=== PATIENT | female | born 1950 | race Caucasian/White ===

== ENCOUNTER 2024-10-14 04:34 | Inpatient (IN) | payer MEDICARE, OTHER ==
[2024-10-14] VITALS (10 sets, daily range): BP systolic 70–129; BP diastolic 60–75
[~2024-10-14] VITALS: Ht 162.6 cm; Wt 55.7 kg
[2024-10-14 05:16] LABS: BASOPHILS ABSOLUTE AUTO 0.01 K/mm3 (0.00-0.23); BASOPHILS PERCENT AUTO 0 % (0-2); EOSINOPHILS ABSOLUTE AUTO 0.01 K/mm3 (0.00-0.68); EOSINOPHILS PERCENT AUTO 0 % (0-6); Hematocrit 45.7 % (33.0-51.0); Hemoglobin 14.1 g/dL (11.5-16.0); IMMATURE GRAN ABSOLUTE AUTO 0.02 K/mm3 (0.00-0.10); IMMATURE GRAN PERCENT AUTO 0 % (0-1); LYMPHOCYTES ABSOLUTE AUTO 1.04 K/mm3 (0.84-5.20); LYMPHOCYTES PERCENT AUTO 10 % (21-46); MONOCYTES ABSOLUTE AUTO 0.68 K/mm3 (0.16-1.47); MONOCYTES PERCENT AUTO 7 % (4-13); Mean Corpuscular HGB Conc 30.9 g/dL (31.5-36.5); Mean Corpuscular Volume 100 fL (80-100); NEUTROPHILS ABSOLUTE AUTO 8.62 K/mm3 (1.96-9.15); NEUTROPHILS PERCENT AUTO 83 % (41-73); NRBC ABSOLUTE 0.00 K/mm3 (0.00-0.02); NRBC Auto 0.0 /100 WBC (0.0-0.2); Platelet Count 204 K/mm3 (150-400); RDW Coefficient Variation 13.0 % (11.7-14.2); RDW Standard Deviation 48.0 fL (35.1-46.3)
[2024-10-14 05:28] LABS: Alanine Aminotransfer (ALT/SGP 165.0 U/L (12-78); Albumin, Blood 3.1 g/dL (3.4-5.0); Albumin/Globulin Ratio 0.9 (0.8-1.8); Anion Gap 16.0 mmol/L (3-11); Aspartate Aminotrans (AST/SGOT 245.0 U/L (12-37); Bilirubin, Total 0.7 mg/dL (0.1-1.0); Blood Urea Nitrogen 32.0 mg/dL (8-24); CO2, Blood 18.0 mmol/L (21-32); Calcium, Blood 8.7 mg/dL (8.5-10.1); Chloride, Blood 106.0 mmol/L (98-108); Creatinine, Blood 0.78 mg/dL (0.40-1.00); Globulin, Blood 3.4 g/dL (2.2-4.0); Glucose, Blood 334.0 mg/dL (70-99); Potassium, Blood 3.7 mmol/L (3.5-5.5); Sodium, Blood 136.0 mmol/L (136-145); Total Protein, Blood 6.5 g/dL (6.4-8.2)
[2024-10-14 07:30] LABS: Source, Urine Clean Catch; pH Blood Venous 7.31 (7.34-7.37)
[2024-10-14 07:47] LABS: Bilirubin, Urine Neg (Neg); Glucose Qualitative, Urine 3+ (Neg); Ketones, Urine Neg (Neg); Leukocyte Esterase, Urine Neg (Neg); Protein, Urine 3+ (Neg); Specific Gravity, Urine 1.020 (1.003-1.022); Urobilinogen, Urine NORM (Normal)
[2024-10-14] MEDS ORDERED: [UNRECOGNIZED DRUG - OTHER] (07:47)
[2024-10-14] MEDS ORDERED: BUPR100 PO (07:47)
[2024-10-14] MEDS ORDERED: Dilaudid 2 mg Ta2 MG PO (07:47)
[2024-10-14] MEDS ORDERED: NEURONTIN40010 PO (07:47)
[2024-10-14] MEDS ORDERED: AZELASTINE137 MCG/06 NS (07:48)
[2024-10-14] MEDS ORDERED: Amphetamine Sal20 MG PO (07:48)
[2024-10-14] MEDS ORDERED: CHOLESTYRAMI239.4 G1 PO (07:48)
[2024-10-14] MEDS ORDERED: ACAR50 PO (07:48)
[2024-10-14 07:56] LABS: Color, Urine Yellow (P-Yellow)
[2024-10-14 08:00] LABS: White Blood Cells, Urine 0-2 /hpf (0-5)
[2024-10-14 08:10] LABS: Calcium, Ionized (POC) 1.04 mmol/L (1.10-1.46); Chloride (POC) 104 mmol/L (98-108); Creatinine (POC) 0.8 mg/dL (0.6-1.0); Glucose (ISTAT POC) 187 mg/dL (70-99); Hematocrit (POC) 40.0 % (36.0-46.0); Hemoglobin (POC) 13.6 g/dL (12.0-16.0); Potassium (POC) 3.8 mmol/L (3.5-5.5); Sodium (POC) 138 mmol/L (135-148); Total CO2 (POC) 23 mmol/L (21-32)
[2024-10-14] MEDS ORDERED: FentaNYL Citrate 50 MCG/ML 2 ML Injection ONE ×2 (09:19→11:45)
[2024-10-14] MEDS ORDERED: NS 2,000 ML IV ONE (10:16)
[2024-10-14] MEDS ORDERED: Heparin Sodium 1000 Units/ML 10ML MDV ONE (10:16)
[2024-10-14] MEDS ORDERED: Midazolam HCl 1MG / ML 2ML Vial ONE ×5 (10:29→11:45)
[2024-10-14] MEDS ORDERED: Phenylephrine HCl 100 MCG/ML-NS 10MLSYR (1MG/10ML) ONE (10:31)
[2024-10-14] MEDS ORDERED: NS 500 ML IV ONE (11:02)
[2024-10-14] MEDS ORDERED: Cetylpyridinium Chloride 1 EA MISC MT SCH (11:20)
--- NOTE | 2024-10-14 11:26 | NUR ---
"Spiritual Care | Family Support Pt. was coding in the ED when nurse requests spiritual supoprt for the Pt. Facilitated a life review and listened with empathy and a calming presence. Facilitated support as the pts. CHEYENNE pitts was requested to make decisions on behalf of the Pt. Supported daughter as she made decisions, and sought details of the Pts. Advanced Directive which Karlo in [place] had on record. Assisted Daughter and her boyfriend to Court Assistant waiting room. Faciolited more spiritual like review and prayed with the daughter and on behalf of the Pt. Brewery Representative inromed that he would pursue more diagnostics. Will remain available to Pt. and daughter after she gets transferred to ICU."
[2024-10-14] MEDS ORDERED: NS 250 ML IV ONE (11:28)
[2024-10-14 11:44] LABS: pH Blood Arterial 7.25 (7.35-7.45)
[2024-10-14] MEDS ORDERED: Hydrogen Peroxide 1.5 % Solution MT SCH (12:00)
[2024-10-14] MEDS ORDERED: Ampicillin Sod/Sulbactam Sod 3 GM in NS 100 ML IV SCH (12:43)
[2024-10-14] MEDS ORDERED: Doxycycline Hyclate 100 MG in Dextrose 5% 250 ML IV SCH (12:44)
[2024-10-14] MEDS ORDERED: Vancomycin (Pharmacy Consult) IV SCH (12:50)
[2024-10-14] MEDS ORDERED: Piperacillin/Tazobactam Sod 3.375 GM in NS 100 ML IV SCH (14:00)
[2024-10-14] MEDS ORDERED: Prednisone10 MG PO (14:28)
[2024-10-14] MEDS ORDERED: AMPDEX5 (14:34)
[2024-10-14] MEDS ORDERED: CHOLP PO (14:35)
[2024-10-14] MEDS ORDERED: CYAN1000I SC (14:36)
[2024-10-14] MEDS ORDERED: DULO60 PO (14:37)
[2024-10-14 14:49] LABS: Thyroid Stimulating Hormone 0.997 uIU/mL (0.360-4.800)
[2024-10-14] MEDS ORDERED: Etomidate 2MG / ML 10ML Vial XX ONE (15:10)
[2024-10-14] MEDS ORDERED: SuccINYLCHOLINE Chloride 100 MG/5 ML 5MLSYR IV ONE (15:10)
[2024-10-14] MEDS ORDERED: FentaNYL Citrate 50 MCG/ML 2 ML Injection IV PRN (15:15)
--- NOTE | 2024-10-14 15:59 | NUR ---
Spiritua Care Foillow up Pt. is untubated and not responsive. Daughter is at bedside. Facilitate a update and listen with interest and empathy. Daughter verbalizes a great appreciation for the care the Pt. has received, and also verbalized gratitude for the spiritual care visit.
--- NOTE | 2024-10-14 16:33 | NUR ---
ARRIVAL TO ICU PT ARRIVED TO ICU AT APPROXIMATELY 1235. PT BROUGHT TO ICU IN ICU BED WITH ENTRY LEVEL STAFF AND RT. PT INTUBATED AND SEDATED. PROPOFOL INFUSING AT 10MCG/KG/MIN ON ARRIVAL TO ICU. PROPOFOL PLACED ON SB TO ASSESS NEURO STATUS. PT OPENED EYES WHEN ASKED, ATTEMPTED TO SIT UP, FOLLOWED SOME COMMANDS SUCH WIGGLING TOES AND SQUEEZING HANDS. PROPOFOL RESTARTED AND TITRATED UP TO 20MCG/KG/MIN FOR VENT COMPLIANCE. HR 80'S PACED, PT HAS TEMPORARY PACEMAKER IN PLACE TO [facility], RATE 80, OUTPUT 5, SENSE 2. TMEPORARY PACEMAKER SUTURE IN PLACE WITH CHG DRESSING. ARTERIAL LINE IN PLACE TO RIGHT FEMORAL, SUTURED IN PLACE, CHG DRESSING. LEVOPHED INFUSING, SEE FLOWSHEET FOR TITRATIONS, DOPAMINE ALSO INFUSING, SEE EMAR FOR FLOWSHEET. VENT SETTINGS AC/VC 16/450/5/100%, OXYGEN SATURATION >95%. ABDOMEN FIRM ON ARRIVAL TO UNIT, BOWEL TONES HYPOACTIVE. OG TUBE PLACED. TEMP BOJORQUEZ PLACED ON ARRIVAL TO ICU, ABDOMEN APPEARS LESS DISTENDED POST BOJORQUEZ PLACEMENT WITH 1000ML OF YELLOW URINE OUT. PIV IN PLACE TO RIGHT HAND AND RAC SL. CENTRAL LINE IN PLACE TO RIGHT FEMORAL, CHG DRESSING IN PLACE. PT HAS SMALL RED AREA ON COCCYX, MEPILEX IN PLACE. BED IN LOWEST POSITION, DAUGHTER AT THE BEDSIDE. CARE CONTINUES.
--- NOTE | 2024-10-14 17:49 | NUR ---
PALLIATIVE CARE VISIT: REVIEWED MEDICAL RECORD, SPOKE TO RN, STEEL MELTER PRIOR TO VISIT. MET WITH DAUGHTER CRISTOPHER IN THE ROOM. PT IS INTUBATED AND SEDATED. NON RESPONSIVE AT THIS TIME. PAIN FACE SCALE IS 0/10. PT APPEARS ELDERLY, PALE, FRAIL AT BASELINE. INTRODUCTIONS OF WHAT PALLIATIVE CARE IS MADE TO DAUGHTER. DISCUSSED LEVEL OF FUNCTIONING OF PT PRIOR TO EMS CALL AND THIS EVENT. PER DAUGHTER PT HAS CHRONIC SEVERE PAIN THAT IS DISABLING AT TIMES DUE TO SEVERAL BACK INJURIES, HAS HAD STOMACH REMOVED AND SO IS ON A SPECIAL TEXTURE DIET AND ONLY EATS SMALL BITES OF FOOD. PT HAS TRIALED MANY PAIN MEDICATIONS-MORPHINE CAUSES NAUSEA, FENTANYL DOES NOT RELIEVE PAIN BUT FOR A COUPLE HOURS, FENTANYL PATCH WAS INEFFECTIVE, NSAIDS WORKED BUT CANNOT BE USED BECAUSE SHE HAS NO STOMACH, DILAUDID IS EFFECTIVE BUT PT STILL HAS BREAKTHROUGH PAIN. RECENTLY STARTED ON PREDNISONE AND WAS SOMEWHAT EFFECTIVE. DISCUSSED GOALS OF CARE. DAUGHTER IS HOPEFUL PT WILL RETURN TO PRIOR LEVEL OF FUNCTIONING. SHE WOULD LIKE TO BE ABLE TO TAKE HER MOM HOME TO CONTINUE CARING FOR HER. SHE DOES NOT REGRET CHOICE TO HAVE CPR PERFORMED, SHE DOES WORRY ABOUT WHAT DAMAGE CPR WILL HAVE CAUSED. SHE DOES NOT WANT ANY FURTHER CPR EFFORTS HOWVER, IF HER MOMS HEART FAILS AGAIN. HENCE SHE IS DNR. SHE IS ONLY DAUGHTER, NO OTHER CHILDREN INVOLVED IN DECISION MAKING.
--- NOTE | 2024-10-14 17:50 | NUR ---
SHIFT SUMMARY NO ACUTE CHANGES SINCE LAST NOTE. PT RESTING IN BED, PROPOFOL INFUSING AT 20MCG/KG/MIN. VENT SETTINGS AC/VC 16/450/5/100%, OXYGEN SATURATION >95%. TRANVENOUS PACER REMAINS IN PLACE TO [facility]. HR 80'S PACED. LEVOPHED INFUSING WELL DOPAMINE TO MAINTAIN MAP >65, SEE FLOWSHEET FOR TITRATIONS. ARTERIAL LINE IN PLACE TO RIGHT FEMORAL. OG TUBE IN PLACE CLAMPED. TEMP BOJORQUEZ IN PLACE PATENT DRAINING YELLOW URINE TO GRAVITY. CENTRAL LINE IN PLACE TO RIGHT FEMORAL. PIV IN PLACE TO RAC AND RIGHT HAND SL. BED IN LOWEST POSITION, CARE CONTINUES.
[2024-10-14 18:13] LABS: Alanine Aminotransfer (ALT/SGP 167.0 U/L (12-78); Albumin, Blood 2.7 g/dL (3.4-5.0); Albumin/Globulin Ratio 1.0 (0.8-1.8); Anion Gap 10.0 mmol/L (3-11); Aspartate Aminotrans (AST/SGOT 245.0 U/L (12-37); Bilirubin, Total 0.6 mg/dL (0.1-1.0); Blood Urea Nitrogen 29.0 mg/dL (8-24); CO2, Blood 22.0 mmol/L (21-32); Calcium, Blood 7.7 mg/dL (8.5-10.1); Chloride, Blood 111.0 mmol/L (98-108); Creatinine, Blood 0.63 mg/dL (0.40-1.00); Globulin, Blood 2.8 g/dL (2.2-4.0); Glucose, Blood 155.0 mg/dL (70-99); Potassium, Blood 4.1 mmol/L (3.5-5.5); Sodium, Blood 139.0 mmol/L (136-145); Total Protein, Blood 5.5 g/dL (6.4-8.2)
[2024-10-14 18:44] LABS: pH Blood Venous 7.48 (7.34-7.37)
[2024-10-14] MEDS ORDERED: Amiodarone HCl 50 MG / ML 3 ML Amp IV ONE (19:34)
[2024-10-14] MEDS ORDERED: Vasopressin 20 UNITS in NS 100 ML IV SCH (22:55)
[2024-10-15] VITALS (20 sets, daily range): BP systolic 90–144; BP diastolic 64–89
[2024-10-15 03:38] LABS: Hematocrit 39.5 % (33.0-51.0); Hemoglobin 13.4 g/dL (11.5-16.0); Mean Corpuscular HGB Conc 33.9 g/dL (31.5-36.5); NRBC ABSOLUTE 0.00 K/mm3 (0.00-0.02); NRBC Auto 0.0 /100 WBC (0.0-0.2); Platelet Count 166 K/mm3 (150-400); RDW Coefficient Variation 13.0 % (11.7-14.2); RDW Standard Deviation 44.3 fL (35.1-46.3)
[2024-10-15 03:48] LABS: Mean Corpuscular Volume 92 fL (80-100)
[2024-10-15 04:07] LABS: Alanine Aminotransfer (ALT/SGP 136.0 U/L (12-78); Albumin, Blood 2.5 g/dL (3.4-5.0); Albumin/Globulin Ratio 0.9 (0.8-1.8); Anion Gap 9.0 mmol/L (3-11); Aspartate Aminotrans (AST/SGOT 154.0 U/L (12-37); Bilirubin, Total 0.5 mg/dL (0.1-1.0); Blood Urea Nitrogen 23.0 mg/dL (8-24); CO2, Blood 22.0 mmol/L (21-32); Calcium, Blood 7.6 mg/dL (8.5-10.1); Chloride, Blood 112.0 mmol/L (98-108); Creatinine, Blood 0.63 mg/dL (0.40-1.00); Globulin, Blood 2.7 g/dL (2.2-4.0); Glucose, Blood 202.0 mg/dL (70-99); Magnesium, Blood 2.0 mg/dL (1.6-2.4); Phosphorus, Blood 3.6 mg/dL (2.5-4.9); Potassium, Blood 4.7 mmol/L (3.5-5.5); Sodium, Blood 138.0 mmol/L (136-145); Total Protein, Blood 5.2 g/dL (6.4-8.2)
[2024-10-15] MEDS ORDERED: Pantoprazole Sodium 40 MG Injection IV SCH ×2 (06:00→09:00)
--- NOTE | 2024-10-15 06:19 | NUR ---
End of Shift Summary Pt remains of ventiltor with tranvenous pacing. Sedated with analgesic running on levophed and vasopressor. Dopamine titrated off early in to shift . No signficant events overnight . ART line reading 111/70 (83) .
[2024-10-15] MEDS ORDERED: Docusate Sodium Liquid 100 MG UDC PT PRN (11:45)
[2024-10-15] MEDS ORDERED: Magnesium Hydroxide Conc 10 ML UDC PT PRN (11:45)
[2024-10-15] MEDS ORDERED: Enoxaparin 40 MG/0.4 ML SYR SC SCH (12:00)
[2024-10-15] MEDS ORDERED: Insulin Regular 100 UNIT/ML 10ML Vial SC SCH (12:00)
--- NOTE | 2024-10-15 17:33 | NUR ---
SHIFT SUMMARY PT INTUBATED ON VENT, RESTLESS AND PAINFUL START OF SHIFT, ABLE TO MOVE ALL EXTREMETIES FREELY, UNABLE TO FOLLOWD COMMANDS. GTTS VERFIIED IN CHARTING AND FENTANYL/PROPOFOL INCREASED FOR ANALGESIA/SEDATION. VENT SETTINGS ACVC 12/450/5/40. BREATH SOUNDS CLEAR AND PATIENT TOLERATING VENT W/O DISTRESS. HR CONTROLLED IN NSR VIA DUAL CHAMBER TEMP TV PACER, RATE SET AT 80, OUTPUT 5, SENSE 2. BOWEL SOUNDS PRESENT AND HYPOACTIVE, TF GLUCERNA STARTED AT 25ML/HR, GOAL BEING 35ML/HR. BOJORQUEZ CATHETER IN PLACE DRAINING CLEAR/YELLOW URINE, TEMP FEATURE MALFUNCTIONING ON MONTIOR, TEMPORAL TEMP TAKEN THROUGHOUT SHIFT. UOP INCREASED AFTER 1 L LR BOLUS AND INITIATION OF 75ML/HR LR GTT. SKIN PALE THROUGHOUT, MOTTLED SKIN PATTERN ON BILATERAL KNEES. RED BRUISING ON CHEST FROM PREVIOUS COMPRESSIONS. PT TURNED Q2 THROUGHOUT SHIFT. ACCESS PERIPHERAL RAC AND RH, R FEMORAL QUAD LUMEN CVC IN PLACE, PATENT W/ BLOOD RETURN. R GROIN ARTERIAL LINE IN PLACE, ZEROED AT START OF SHIFT. GTTS FOLLOWS; LEVO 5, VASO 0.04, FENT 100, PROP 45, LR 75
[2024-10-15] MEDS ORDERED: Protein Supplement 30 ML UD PT SCH (21:00)
[2024-10-16] VITALS (59 sets, daily range): BP systolic 79–123; BP diastolic 44–95
[2024-10-16 05:27] LABS: pH Blood Venous 7.47 (7.34-7.37)
--- NOTE | 2024-10-16 05:40 | NUR ---
PROVIDER CONTACT; APPROX 0440 FLATWORK FOLDER AT BEDSIDE TO GET MORNING CXR. PT LIFTED WITH GREEN SHEET AND PT HYPEREXTENDED NECK AT THIS TIME AND PACER OBSERVED ON MONITOR TO LOSE CAPTURE. PT HR UP TO THE 140'S, ABP STABLE. PT ROLLED TO LEFT SIDE AND TV CAPTURE OBSERVED APPROX. 50%. DR. KHAN CALLED AND UPDATED; PROVIDER STATED THAT NO FURTHER INTERVENTION AT THIS TIME, NO NEW ORDERS RECIEVED. ZOLL PADS PLACED ON PT AND ZOLL PLACED AT BEDSIDE IF NEEDED.
[2024-10-16 05:44] LABS: BASOPHILS ABSOLUTE AUTO 0.01 K/mm3 (0.00-0.23); BASOPHILS PERCENT AUTO 0 % (0-2); EOSINOPHILS ABSOLUTE AUTO 0.00 K/mm3 (0.00-0.68); EOSINOPHILS PERCENT AUTO 0 % (0-6); Hematocrit 33.8 % (33.0-51.0); Hemoglobin 11.3 g/dL (11.5-16.0); IMMATURE GRAN ABSOLUTE AUTO 0.05 K/mm3 (0.00-0.10); IMMATURE GRAN PERCENT AUTO 1 % (0-1); LYMPHOCYTES ABSOLUTE AUTO 0.80 K/mm3 (0.84-5.20); LYMPHOCYTES PERCENT AUTO 9 % (21-46); MONOCYTES ABSOLUTE AUTO 0.49 K/mm3 (0.16-1.47); MONOCYTES PERCENT AUTO 6 % (4-13); Mean Corpuscular HGB Conc 33.4 g/dL (31.5-36.5); Mean Corpuscular Volume 93 fL (80-100); NEUTROPHILS ABSOLUTE AUTO 7.60 K/mm3 (1.96-9.15); NEUTROPHILS PERCENT AUTO 85 % (41-73); NRBC ABSOLUTE 0.00 K/mm3 (0.00-0.02); NRBC Auto 0.0 /100 WBC (0.0-0.2); Platelet Count 127 K/mm3 (150-400); RDW Coefficient Variation 13.2 % (11.7-14.2); RDW Standard Deviation 45.1 fL (35.1-46.3)
[2024-10-16 06:04] LABS: Alanine Aminotransfer (ALT/SGP 91 U/L (12-78); Albumin, Blood 2.2 g/dL (3.4-5.0); Albumin/Globulin Ratio 0.8 (0.8-1.8); Anion Gap 9 mmol/L (3-11); Aspartate Aminotrans (AST/SGOT 68 U/L (12-37); Bilirubin, Total 0.3 mg/dL (0.1-1.0); Blood Urea Nitrogen 28 mg/dL (8-24); CO2, Blood 24 mmol/L (21-32); Calcium, Blood 7.4 mg/dL (8.5-10.1); Chloride, Blood 108 mmol/L (98-108); Creatinine, Blood 0.56 mg/dL (0.40-1.00); Globulin, Blood 2.8 g/dL (2.2-4.0); Glucose, Blood 219 mg/dL (70-99); Magnesium, Blood 1.9 mg/dL (1.6-2.4); Phosphorus, Blood 2.2 mg/dL (2.5-4.9); Potassium, Blood 4.0 mmol/L (3.5-5.5); Sodium, Blood 137 mmol/L (136-145); Total Protein, Blood 5.0 g/dL (6.4-8.2); Vancomycin, Trough 9.7 ug/mL (5.0-10.0)
[2024-10-16] MEDS ORDERED: Sodium Phosphate 15 MM in Dextrose 5% 250 ML IV ONE (06:40)
[2024-10-16] MEDS ORDERED: Mag Sulfate 1 GM/D5% 100ML 100 ML IV STA ×2 (07:04→10:36)
[2024-10-16 08:31] LABS: pH Blood Venous 7.42 (7.34-7.37)
[2024-10-16] MEDS ORDERED: Multivitamins-Minerals Liquid 15 ML Oral Syringe PT SCH (09:00)
[2024-10-16] MEDS ORDERED: Artificial Tear Opth Oint 3.5 GM BOTHEYES PRN (09:30)
[2024-10-16] MEDS ORDERED: LORazepam 2 MG/ML 1ML Injection IV ONE (14:25)
--- NOTE | 2024-10-16 15:08 | NUR ---
LOSS OF CAPTURE PT WITH GOOD MECHANICAL CAPTURE NOTED AND PACER SPIKES NOTED ON THE MONITOR THROUGHOUT THIS MORNING. PT WITH LOSS OF CAPTURE AT THIS TIME WITH HR 50'S. PACER SPIKES CONTINUE ON MONITOR. DR LIVE NOTIFIED. DR LIVE DOES NOT WANT TO MAKE ANY CHANGES TO TRANSVENOUS PACER SETTINGS OR INSERTION DEPTH. ORDERS RECIEVED TO PACE PT TRANSCUTANEOUSLY IF HR DROPS BELOW 40. BP STABLE AT THIS TIME WITH LEVOPHED INFUSING.
--- NOTE | 2024-10-16 17:09 | NUR ---
THIS PC RN SPENT AN HOUR WITH THE PATIENT'S DAUGHTER FERN. SHE EXPRESSES CONCERN ABOUT THE LENGTHY CPR PROCESS THE PATIENT WENT THROUGH. SHE ALSO STATES SHE ONLY WENT THROUGH WITH THE CPR FOR HER MOM BECAUSE HER DAUGHTER, THE PATIENT'S ONLY GRANDCHILD, INSISTED ON IT. HOWEVER, NOW SHE RECOGNIZES THIS MAY NOT HAVE A GOOD OUTCOME. THIS PC RN GAVE DAUGHTER BOOKLET, "HARD CHOICES FOR LOVING PEOPLE." SHE IS GOING TO READ IT TONIGHT, AND WE'LL TALK AGAIN TOMORROW. SHE STATES HER DAUGHTER WILL BE COMING TO VISIT SOON, AND REQUESTS PALLIATIVE CARE TALK WITH HER WELL.
--- NOTE | 2024-10-16 17:34 | NUR ---
SHIFT SUMMARY GTT SETTINGS VERIFIED IN FLOW SHEET AT START OF SHIFT. PT INTUBATED ON VENT ACVC /09/17. SEDATION WAS TURNED OFF TO PERFORM SAT, PT WAS RESTLESS/AGITATED/PULLING ON LINES/RESTRAINTS, AND UNABLE TO FOLLOW COMMANDS OR TRACK VISUAL CUES. SEDATION WAS ADJUSTED AND PLACED BACK ON PER PHYSICIAN ORDER. PT REMAINED NSR WITHOUT PACER SPIKES VISUALIZED ON MONITOR. SEE LOSS OF CAPTURE NOTE REGARDING TVP FUNCTIONALITY. ARTERIAL LINE REMOVED DUE TO POSITIONAL STATUS AND NONINVASIVE CUFF PRESSURE BEING ACCURATE. SB DURING THE AFTERNOON. BREATH SOUNDS DIM W/ RHONCHI, WITH CONTINUED SUCTION OF BROWN/RED SECRETIONS, RHONCHI DIMINISHED T/O SHIFT. SBT WAS PERFORMED IN THE AM WITH SEDATION TURNED OFF, PT WAS ABLE TO SUPPORT SPONTANEOUS 10/23 30%FI02, HOWEVER NEURO STATUS REQUIRED SEDATION AND ACVC SETTINGS REINSTATED. BOWEL TONES PRESENT AND ACTIVE, TF AT RATE OF 35 THOUGH OG W/ MINIMAL RESIDUAL VOLUMES. BOJORQUEZ CATHETER DRAINIG CLEAR YELLOW URINE TO GRAVITY. SKIN WAS COOL, CAP REFILL <3 SECS, MOTTLING TO BILATERAL KNEES, REDNESS TO MIDLINE CHEST. GTT SETTINS FOLLOWS; PROP 65, FENT, 50, LEVO 7.
[2024-10-17] VITALS (91 sets, daily range): BP systolic 87–155; BP diastolic 39–104
[2024-10-17 05:15] LABS: BASOPHILS ABSOLUTE AUTO 0.01 K/mm3 (0.00-0.23); BASOPHILS PERCENT AUTO 0 % (0-2); EOSINOPHILS ABSOLUTE AUTO 0.05 K/mm3 (0.00-0.68); EOSINOPHILS PERCENT AUTO 1 % (0-6); Hematocrit 31.4 % (33.0-51.0); Hemoglobin 10.3 g/dL (11.5-16.0); IMMATURE GRAN ABSOLUTE AUTO 0.02 K/mm3 (0.00-0.10); IMMATURE GRAN PERCENT AUTO 0 % (0-1); LYMPHOCYTES ABSOLUTE AUTO 1.57 K/mm3 (0.84-5.20); LYMPHOCYTES PERCENT AUTO 19 % (21-46); MONOCYTES ABSOLUTE AUTO 0.67 K/mm3 (0.16-1.47); MONOCYTES PERCENT AUTO 8 % (4-13); Mean Corpuscular HGB Conc 32.8 g/dL (31.5-36.5); Mean Corpuscular Volume 95 fL (80-100); NEUTROPHILS ABSOLUTE AUTO 5.99 K/mm3 (1.96-9.15); NEUTROPHILS PERCENT AUTO 72 % (41-73); NRBC ABSOLUTE 0.00 K/mm3 (0.00-0.02); NRBC Auto 0.0 /100 WBC (0.0-0.2); Platelet Count 122 K/mm3 (150-400); RDW Coefficient Variation 13.3 % (11.7-14.2); RDW Standard Deviation 46.5 fL (35.1-46.3)
[2024-10-17 05:42] LABS: Anion Gap 4.0 mmol/L (3-11); Blood Urea Nitrogen 21.0 mg/dL (8-24); CO2, Blood 28.0 mmol/L (21-32); Calcium, Blood 7.6 mg/dL (8.5-10.1); Chloride, Blood 116.0 mmol/L (98-108); Creatinine, Blood 0.72 mg/dL (0.40-1.00); Glucose, Blood 141.0 mg/dL (70-99); Magnesium, Blood 2.4 mg/dL (1.6-2.4); Phosphorus, Blood 1.8 mg/dL (2.5-4.9); Potassium, Blood 2.9 mmol/L (3.5-5.5); Sodium, Blood 145.0 mmol/L (136-145)
[2024-10-17] MEDS ORDERED: Potassium Phosphate Dibasic 30 MM in Dextrose 5% 500 ML IV ONE (06:05)
--- NOTE | 2024-10-17 07:07 | NUR ---
SHIFT SUMMARY: NO ACUTE CHANGES OVERNIGHT; VSS THROUGHOUT THE SHIFT. PT REMAINS INTUBATED AND SEDATED WITH VENT SETTINGS AC/VC 12/450/5/40%, SEDATED WITH PROPOFOL @ 65 MCG AND FENTANYL @ 50 MCG. PT IS RESPONSIVE TO PAIN, GRIMACING AND WITHDRAWING TO PAIN; NO OTHER PURPOSEFUL MOVEMENTS OBSERVED. PT LUNGS ARE CLEAR T/O WITH DIM BASES. PT HAS TV PACER TO RIJ THAT IS FAILING TO CAPTURE; PT MAINTAINING RYTHYM SB WITH RATE 48-60, SBP 100-110'S WITH LEVO AT 7 MCG/MIN. DR. KHAN AWARE REGARDING TV PACER NOT CAPTURING; SETTINGS REMAIN 80/5/2; OCCASIONALLY CAN SEE PACER SPIKES ON MONITOR BUT NOT CAPTURING. PT HAD OGT THAT IS PATENT AND INFUSING GLUCERNA 1.2 @ 35 MLS/HR. BOJORQUEZ PATENT AND DRAINING TO GRAVITY; URINE LIGHT YELLOW, AND GOOD OUTPUT THROUGHOUT THE SHIFT. PT'S DAUGHTER UPDATED REGARDING PACER NOT CAPTURING AT START OF SHIFT AND WAS CONCERNED; PT'S DAUGHTER, FERN, REQESTED TO SPEAK WITH DR. KHAN REGARDING PACER AND TREATMENT PLAN. DR. KHAN CALLED AND FERN WAS ABLE TO HAVE A TELEPHONE CONVERSATION REGARDING HER CONCERNS. DR. TABARES UPDATED AND ORDERS FOR EKG AND CARE MANAGEMENT CONSULT.
[2024-10-17] MEDS ORDERED: LORazepam 2 MG/ML 1ML Injection IV PRN (11:30)
[2024-10-17] MEDS ORDERED: Midazolam HCl 1MG / ML 2ML Vial IV ONE (11:45)
[2024-10-17 12:00] LABS: LYME VLSE1/PEPC10 ABS, ELISA 0.09 IV (<=0.90)
[2024-10-17 17:24] LABS: Phosphorus, Blood 3.3 mg/dL (2.5-4.9); Potassium, Blood 3.3 mmol/L (3.5-5.5)
[2024-10-17 17:30] LABS: Vancomycin, Trough 18.6 ug/mL (5.0-10.0)
[2024-10-17] MEDS ORDERED: Calcium Chloride 10% 2,000 MG in NS 100 ML IV ONE (17:40)
--- NOTE | 2024-10-17 17:54 | NUR ---
SHIFT SUMMARY PT INTUBATED/SEDATED AND GTTS VRFIIED IN WORKSHEET AT START OF SHIFT. VENT SETTINGS ACVC 12/400/50/30, ETT 7.5 AND 23 @ TEETH. PROPOFOL WAS TURNED OFF AT START OF SHIFT TO ALLOW FOR SAT. VENT SET TO SPONTANEOUS 7/5 30%, PT TOLERATED VENT SETTINGS WELL. PT WAS NOT ABLE TO FOLLOW DIRECTIONS AND REMAINED AGITATED/GRIMACED/PULLING AT TUBE. PRECEDEX GTT WAS INITIATED TO ATTEMPT ETHYLENE PLANT OPERATOR SEDATION AND LONGER NEURO CHECK. PT WAS NOT ABLE TO TOLERATE THIS W/ GTT MAXED OUT PER PARAMETERS, ONE TIME DOES OF 1MG VERSED WAS ADMINISTERED. PT BECAME APNEIC W/ VERSED AND WAS SWITCHED BACK TO ACVC SETTINGS ON VENT. BREATH SOUNDS DIM/COARSE T/O LOBES, MODERATE THICK BROWN SECRECTIONS FROM INLINE TUBING. CARDIAC MAPS>65 ON LEVO SUPPORT OF 7MCG/KG/HR. CARDIOLOGY CK CAME TO BEDSIDE TO REMOVE TEMP TVP IT WAS NOT POSITIONED WELL FOR CAPTURE. 12 LEAD EKG CAPTURED BEFORE AND AFTER REMOVAL. PT'S INTRINSIC RATE REMAINED 50'S - 80'S T/O SHIFT. OG TUBE IN PLACE 65 AT TEETH, TF AT GOAL OF 35ML/HR FLOWING. BOJORQUEZ CATHETER IN PLACE AND DRAINING CLEAR YELLOW URINE TO GRAVITY. SKIN REMAINS INTACT W/O BREAKDOWN, REDNESS/BRUISING AT CHEST, BILATERAL MOTTLING PATTERN TO KNEES. BEDSIDE MEETING W/ DAUGHTER FERN, GRANDDAUGHTER JUANCHO, PALLIATIVE LESLIE NOGUEIRA, PHYSICIANS RACHID, GIS SCIENTISTLESLIE [employer] AND MYSELF REGARDING COURSE OF CARE TOOK PLACE. MUTUAL AGREEMENT FOR CONTINUING MEASURES AND RE-ASSESSING FOR INTERVENTIONS BARRING FURTHER DETERIORATION FOR THE NEXT 48-72 HOURS WAS CONCLUDED.
[2024-10-18] VITALS (28 sets, daily range): BP systolic 81–119; BP diastolic 44–81
[2024-10-18 04:13] LABS: BASOPHILS ABSOLUTE AUTO 0.01 K/mm3 (0.00-0.23); BASOPHILS PERCENT AUTO 0 % (0-2); EOSINOPHILS ABSOLUTE AUTO 0.11 K/mm3 (0.00-0.68); EOSINOPHILS PERCENT AUTO 2 % (0-6); Hematocrit 29.7 % (33.0-51.0); Hemoglobin 9.7 g/dL (11.5-16.0); IMMATURE GRAN ABSOLUTE AUTO 0.03 K/mm3 (0.00-0.10); IMMATURE GRAN PERCENT AUTO 1 % (0-1); LYMPHOCYTES ABSOLUTE AUTO 1.58 K/mm3 (0.84-5.20); LYMPHOCYTES PERCENT AUTO 25 % (21-46); MONOCYTES ABSOLUTE AUTO 0.58 K/mm3 (0.16-1.47); MONOCYTES PERCENT AUTO 9 % (4-13); Mean Corpuscular HGB Conc 32.7 g/dL (31.5-36.5); Mean Corpuscular Volume 96 fL (80-100); NEUTROPHILS ABSOLUTE AUTO 4.12 K/mm3 (1.96-9.15); NEUTROPHILS PERCENT AUTO 64 % (41-73); NRBC ABSOLUTE 0.00 K/mm3 (0.00-0.02); NRBC Auto 0.0 /100 WBC (0.0-0.2); Platelet Count 116 K/mm3 (150-400); RDW Coefficient Variation 13.6 % (11.7-14.2); RDW Standard Deviation 47.9 fL (35.1-46.3)
[2024-10-18 04:27] LABS: Anion Gap 4.0 mmol/L (3-11); Blood Urea Nitrogen 15.0 mg/dL (8-24); CO2, Blood 29.0 mmol/L (21-32); Calcium, Blood 7.6 mg/dL (8.5-10.1); Chloride, Blood 113.0 mmol/L (98-108); Creatinine, Blood 0.65 mg/dL (0.40-1.00); Glucose, Blood 135.0 mg/dL (70-99); Magnesium, Blood 2.0 mg/dL (1.6-2.4); Phosphorus, Blood 4.0 mg/dL (2.5-4.9); Potassium, Blood 3.4 mmol/L (3.5-5.5); Sodium, Blood 143.0 mmol/L (136-145)
--- NOTE | 2024-10-18 05:24 | NUR ---
SHIFT SUMMARY PATIENT INTUBATED AND SEDATED. PATIENT GRIMMACING AT START OF SHIFT BUT AFTER RECIEVING PO PAIM MED @2100 PATIENT LOOKED RELAXED WITH NO TENSION ON FACE. PATIENT RESPONDS TO PAIN BUT DOES NOT OPEN EYES OR FOLLOW COMMANDS. 7.5 ET TUBE 25CM AT TEETH, HAS OG TUBE @65CM AND SECURE. PATIENT HR HAS BEEN IN THE 50'S MOSTLY WITH SOMETIMES JUMPIMG INTO THE 60'S. SBP 80-120'S. PATIENT HAS BOJORQUEZ IT IS PATENT AND DRAINING TO GRAVITY. VENT SETTINGS AC/VC 12/450/5/30%. HAS RIGHT WRIST 20G PERIPHERAL IV AND A RIGHT SIDE FEMORAL CENTRAL LINE. LEVO RUNNING @7MCG, PROPOFOL RUNNING @ 60MCG, AND FENTANYL RUNNING @50MCG. TUBE FEEDING RUNNING @GOAL 35ML WITH A 30 ML FLUSH EVERY 4 HOURS. CALL LIGHT WITHIN REACH.
--- NOTE | 2024-10-18 07:00 | NUR ---
CARE ASSUMPTION DURING BEDSIDE SHIFT REPORT W KEITH RN THE PT IS LYING IN BED INTUBATED ON THE VENTILATOR. PT SEDATED W PROPOFOIL AND FENTANYL GTT;S W RASS -3 TO -4. PT HAS LEVOPHED GTT INFUSING. PT IN NO DISTRESS AT THAT TIME. DURING ICU ROUNDING PT'S DAUGHTERS EXPRESSING TO DR. TABARES AND ICU TEAM THAT THE FAMILY WOULD LIKE TO PROCEED W COMFORT CARE. PALLIATIVE CARE RN TO PLACE ORDERS AND PT WILL BE REMOVED FROM THE VENTILATOR.
[2024-10-18] MEDS ORDERED: HYDROmorphone HCl/Pf 1MG SYR IV PRN (11:00)
[2024-10-18] MEDS ORDERED: Haloperidol Lactate Inj. 5 MG/ML Injection IV PRN (11:00)
[2024-10-18] MEDS ORDERED: Atropine Sulfate 1% Opth Soln 2ML BTL SL PRN (11:00)
[2024-10-18] MEDS ORDERED: Morphine Sulfate 10 MG/ML 1MLSYR IV PRN (11:00)
[2024-10-18] MEDS ORDERED: Morphine Sulfate 20 MG/1ML 1 ML Oral Syringe SL PRN (11:00)
--- NOTE | 2024-10-18 12:54 | NUR ---
MET WITH PT'S DAUGHTER CRISTOPHER EXTENSIVELY YESTERDAY AT 2 SEPERATE VISITS TO DISCUSS THE PATIENT'S CONDITION. ON THE PREVIOUS DAY, CRISTOPHER (GOES BY FERN) STATES THE PATIENT DID NOT HAVE GOOD QUALITY OF LIFE PREVIOUS TO CODING IN THE ED, AND VERY UNSURE IF SHE "DID THE RIGHT THING" BY ALLOWING HER TO UNDERGO BEING CODED. REASSURED FERN THAT SHE DID THE BEST THING SHE KNEW TO DO AT THE TIME WHILE ACKNOWLEDGING IT MUST HAVE BEEN EXTREMELY STRESSFUL. WE REVIEWED PT'S AD AGAIN, THIS TIME WITH FERN'S ADULT DAUGHTER JUANCHO PRESENT. WE ALSO MET WITH DR. JORDAN, BEDSIDE RN, AND ICU CHARGE NURSE AT THE BEDSIDE YESTERDAY EVENING TO AGAIN DISCUSS PT'S MEDICAL STATUS WELL EXPECTATIONS MOVING FORWARD. THE PATIENT CONTINUED TO APPEAR PAINFUL BY GRIMACING AND ALL EXTREMITIES FLAILING WHEN SEDATION REDUCED. THIS MORNING, FERN DECIDED TO MOVE FORWARD WITH COMFORT CARE, STATING HER MOM'S QUALITY OF LIFE WAS ALREADY VERY POOR, AND PAIN LARGELY UNCONTROLLED AT BASELINE. SHE ALSO STATES HER MOM HAD DECLINED MULTIPLE SURGICAL INTERVENTIONS OFFERED FOR VARIOUS AILMENTS OVER THE PAST FEW YEARS, AND FEELS SURE HER MOM WOULD NOT AGREE WITH PROLONGING INTUBATION. THIS LINES UP WITH HER WISHES ADVANCE DIRECTIVE STATES. PLAN IS TO MOVE FORWARD WITH TERMINAL WITHDRAWAL TODAY, DR. TABARES GIVES V/O FOR COMFORT CARE AND COMFORT CARE MEDICATIONS TO BE GIVEN NEEDED FOR PAIN AND/OR ANXIETY. EMOTIONAL SUPPORT OFFERED TO FAMILY BY THIS PC RN.
[2024-10-18] MEDS ORDERED: LORazepam 2 MG/ML 1ML Injection IV PRN (13:45)
[2024-10-18] MEDS ORDERED: Diazepam 5 MG / ML 2ML SYR IV PRN (14:25)
--- NOTE | 2024-10-18 15:30 | NUR ---
Spiritual care visit conducted. The patient is extubated just prior to my visit and then I spent over 2 hrs with the family as they processed and celebrated the patient's life. They did so with much love, honor and care and created a peaceful and warm environment. I conducted a life review and provided anticipatory grief support, therapeutic listening and prayer. The family voiced appreciation for the time and care given.
--- NOTE | 2024-10-18 16:16 | NUR ---
RECEIVED REPORT FROM KHALIF OF ICU
--- NOTE | 2024-10-18 17:06 | NUR ---
SHIFT SUMMARY/TRANSFER PT ARRIVED TO ROOM APROX 1700. UNABLE TO ASSESS ORIENTATION, PT HAS LEFT EYE GAZE, UNABLE TO HOLD EYELIDS OPEN FOR LONG. COURSE CRACKLES ALL BASES OF LUNGS. BOJORQUEZ CATHETER INTACT. HAS MEPILEX ON COCCYX, COULD NOT ASSESS AT THIS TIME. PT ON COMFORT CARE MEASURES CURRENTLY.
--- NOTE | 2024-10-19 04:10 | NUR ---
COMFORT CARE SHIFT SUMMARY PATIENT IS NOT ALERT AND ORIENTED. PATIENT HAS BEEN MEDICATED FOR AGRESSION AND PAIN FREQUENTLY THIS SHIFT. PATIENTS DAUGHTER HAS BEEN AT BEDSIDE ALL SHIFT. PATIENT HAS BEEN TURNED FREQUENTLY. BED IN LOCKED AND LOWEST POSITION. CALL LIGHT IN PLACE.
--- NOTE | 2024-10-19 11:27 | NUR ---
The patient's Gdtr is bedside. We discuss grief, family dynamics, the patient's current state and how she did through the night. We talked about some of the challenging activities that will need to take place after the patient expires and how the family typically handles the hard spaces in life. I conducted a life review of the patient and provided therapeutic listening, anticipatory grief support, and prayer. The Gdtr responded well and voiced appreciation for the visit. I will continue to remain available to the patient and family.
--- NOTE | 2024-10-19 16:23 | NUR ---
SHIFT SUMMARY PT ON COMFORT CARE MEASURE. AOX0. MEDICATING PER EMAR FOR PAIN AND AGITATION. WAS INFORMED PT HAS HIGH PAIN MED TOLERANCE, MEDICATING OFTEN POSSIBLE WHEN NECESSARY. BOJORQUEZ INTACT, REPOSITIONING WHEN NECESSARY. FAMILY IS BED ALL SHIFT.
--- NOTE | 2024-10-19 17:04 | NUR ---
Spiritual care second entry this day. Patient's breathing has slowed from yesterday but she resting and showing no signs of discomfort. Patient's dtr Leslie is bedside. She talks at length about the family dynamics, history and love for each other. I provided thrapeutic listening and prayer. Leslie showed signs of being comforted.
--- NOTE | 2024-10-20 03:58 | NUR ---
PATIENT TAKEN BY ANA CABALLERO[facility] AT 1663
== END 2024-10-20 01:45 | DRG 260 ==
LOC: ER 04:34 → ICUE 11:17 → MEDS 10-18 16:50
PROVIDERS: Emergency Medicine; Family Medicine; Internal Medicine Critical Care Medicine; Student in an Organized Health Care Education/Training Program; ADMIT Hospitalist
PROC: 0BH17EZ Insertion of Endotracheal Airway into Trachea, Via Natural or Artificial Opening (ICD-10-PCS; principal; 2024-10-14)
PROC: 02HK3JZ Insertion of Pacemaker Lead into Right Ventricle, Percutaneous Approach (ICD-10-PCS; 2024-10-14)
PROC: B2151ZZ Fluoroscopy of Left Heart using Low Osmolar Contrast (ICD-10-PCS; 2024-10-14)
PROC: 0T9B70Z Drainage of Bladder with Drainage Device, Via Natural or Artificial Opening (ICD-10-PCS; 2024-10-14)
PROC: 5A1945Z Respiratory Ventilation, 24-96 Consecutive Hours (ICD-10-PCS; 2024-10-14)
PROC: 5A12012 Performance of Cardiac Output, Single, Manual (ICD-10-PCS; 2024-10-14)
PROC: 3E033XZ Introduction of Vasopressor into Peripheral Vein, Percutaneous Approach (ICD-10-PCS; 2024-10-14)
PROC: 0DH67UZ Insertion of Feeding Device into Stomach, Via Natural or Artificial Opening (ICD-10-PCS; 2024-10-14)
PROC: 4A023N7 Measurement of Cardiac Sampling and Pressure, Left Heart, Percutaneous Approach (ICD-10-PCS; 2024-10-14)
PROC: B2111ZZ Fluoroscopy of Multiple Coronary Arteries using Low Osmolar Contrast (ICD-10-PCS; 2024-10-14)
PROC: 06HY33Z Insertion of Infusion Device into Lower Vein, Percutaneous Approach (ICD-10-PCS; 2024-10-14)
DX: I44.2 Atrioventricular block, complete (principal); I21.A1 Myocardial infarction type 2; J96.01 Acute respiratory failure with hypoxia; J69.0 Pneumonitis due to inhalation of food and vomit; K81.0 Acute cholecystitis; R64 Cachexia; E87.20 Acidosis, unspecified; Z66 Do not resuscitate; Z51.5 Encounter for palliative care; I46.8 Cardiac arrest due to other underlying condition; I47.20 Ventricular tachycardia, unspecified; R57.0 Cardiogenic shock; R73.9 Hyperglycemia, unspecified; T38.0X5A Adverse effect of glucocorticoids and synthetic analogues, initial encounter; I45.10 Unspecified right bundle-branch block; M19.90 Unspecified osteoarthritis, unspecified site; F03.90 Unspecified dementia, unspecified severity, without behavioral disturbance, psychotic disturbance, mood disturbance, and anxiety; G89.29 Other chronic pain; F90.9 Attention-deficit hyperactivity disorder, unspecified type; Z68.24 Body mass index [BMI] 24.0-24.9, adult; Z98.84 Bariatric surgery status; Z79.52 Long term (current) use of systemic steroids; Z79.899 Other long term (current) drug therapy
CPT/HCPCS: 31500; 33210; 36415; 36600; 51702; 71045; 74177; 76705; 76937; 80047; 80048; 80053; 80202; 81001; 82010; 82330; 82803; 82947; 83036; 83605; 83735; 83880; 84100; 84132; 84145; 84439; 84443; 84481; 84484; 85014; 85025; 85027; 86618; 87040; 87070; 87205; 92953; 93005; 93010; 93306; 93308; 93321; 93458; 94002; 94003; 96361-59; 96365-59; 96375-59; 96376-59; 99152; 99153; 99291-25; A9270; C1751; C1769; C1894; J0282; J0330; J0461; J0612; J1171; J1630; J1644; J1650; J1720; J1815; J2250; J2270; J2371; J2470; J2543; J2704; J3010; J3360; J3370; J3373; J3475; J3480; J7030; J7040; J7050; J7060; J7120; P9612; Q9967